=== PATIENT | male | born 1980 | race Two or more races ===

== ENCOUNTER 2018-09-12 20:31 | Emergency (ER) | payer SELFPAY ==
[~2018-09-12] VITALS: Ht 172.7 cm; Wt 72.6 kg
[2018-09-12 20:38] VITALS: BP 149/87
== END 2018-09-12 20:52 | disposition home or self-care (01) ==
LOC: ER 20:34
DX: J04.0 Acute laryngitis (principal); Z98.890 Other specified postprocedural states; Z60.2 Problems related to living alone